=== PATIENT | female | born 1990 | race Caucasian/White ===

== ENCOUNTER 2018-08-25 08:44 | Emergency (ER) | payer MEDICAID ==
[~2018-08-25] VITALS: Ht 154.9 cm; Wt 70.8 kg
[2018-08-25 08:49] VITALS: Ht 154.9 cm; Wt 70.8 kg
[2018-08-25 10:25] LABS: microscopic required? YES; urine erythrocyte 1+ (NEGATIVE)
[2018-08-25 11:58] VITALS: BP 110/74
== END 2018-08-25 11:58 | disposition home or self-care (01) ==
LOC: ED 08:44
PROVIDERS: Emergency Medicine
DX: R30.0 Dysuria (principal)